=== PATIENT | male | born 1995 | race Caucasian/White ===

== ENCOUNTER 2021-12-28 09:42 | Outpatient (CLI) | payer OTHER, SELFPAY ==
[2021-12-28 10:08] LABS: Appearance Urine Clear (Clear); Bilirubin Urine Negative (Negative); Blood Urine Negative (Negative); Color Urine Yellow (Yellow); Glucose Urine 2+ (Negative); Ketones Urine Negative (Negative); Leukocyte Esterase Urine Negative (Negative); Nitrite Urine Negative (Negative); Protein Urine Negative (Negative); Specific Gravity Urine >= 1.030 (1.000-1.030); Urobilinogen Urine 0.2 (0.2-1.0)
[2021-12-28 10:20] LABS: Hemoglobin A1C* 9.9 % (0-5.6)
[2021-12-28 13:49] LABS: Basophils Absolute Auto 0.03 K/uL (0.00-0.30); Basophils Percent Auto 0.6 % (0.0-3.0); Eosinophils Absolute Auto 0.15 K/uL (0.00-0.50); Eosinophils Percent Auto 2.8 % (0.0-7.0); Hematocrit 45.1 % (37.0-53.0); Hemoglobin* 15.6 gm/dL (13.5-17.5); Immature Granulocytes Abs Auto 0.01 K/uL (0.00-0.30); Lymphocytes Percent Auto 46.3 % (20-44); Mean Corpuscular HGB Conc 35 gm/dL (32-36); Mean Corpuscular Hemoglobin 29 pg (26-34); Mean Corpuscular Volume 84 fL (80-100); Monocytes Percent Auto 6.3 % (0.0-11.0); Neutrophils Absolute Auto 2.36 K/uL (1.7-7.0); Neutrophils Percent Auto 43.8 % (42.0-72.0); Platelet Count* 264 K/uL (140-440); RDW Coefficient of Variation % 12.2 % (11.5-15.5); Red Blood Count 5.36 m/uL (4.30-5.90); White Blood Count* 5.38 K/uL (4.50-11.00)
[2021-12-28 13:54] LABS: Slide Review Reflex No
[2021-12-29 07:59] LABS: Blood Urea Nitrogen* 19 mg/dL (5-24); Carbon Dioxide* 27 mmol/L (20-32); Chloride* 102 mmol/L (96-114); Creatinine* 0.8 mg/dL (0.5-1.5); Estimated Glomerular Filt Rate 124 ml/min; Potassium* 4.9 mmol/L (3.6-5.1); Sodium* 139 mmol/L (135-149)
[2021-12-29 08:00] LABS: Calcium* 9.7 mg/dL (8.4-10.6); Glucose* 185 mg/dL (60-115)
== END 2021-12-28 09:43 | disposition home or self-care (01) ==
PROVIDERS: PCP Internal Medicine; Visit Provider Nurse Practitioner Family
DX: R10.9 Unspecified abdominal pain (principal); E10.9 Type 1 diabetes mellitus without complications; L30.9 Dermatitis, unspecified
CPT/HCPCS: 36415; 80048; 81003; 83036; 85025

== ENCOUNTER 2022-01-02 07:47 | Outpatient (CLI) | payer OTHER, SELFPAY ==
--- NOTE | 2022-01-02 08:00 | CRLHL7_ITS ---
For Patients: As a result of the Century Cures Act, medical imaging exams and procedure reports are released immediately into your electronic medical record. You may view this report before your referring provider. If you have questions, please contact your health care provider. INDICATION: FLANK AND ABD PAIN TECHNIQUE: A CT volumetric acquisition was performed of the abdomen and pelvis without intravenous contrast. Please note that all CT scans at this facility use dose modulation, iterative reconstruction, and/or weight-based dosing when appropriate to reduce radiation dose to as low as reasonably achievable. COMPARISON: None. FINDINGS: The CT images demonstrate normal aeration of the lung bases. There is no evidence of pleural or pericardial fluid. Within the abdomen the liver appears normal in size and density. The spleen is of normal size. There is no evidence of mass effect or inflammation within the pancreas. The gallbladder and bile ducts appear normal. The adrenal glands have normal morphology. High attenuation renal pyramid sign noted bilaterally. No hydronephrosis or perinephric stranding. No evidence of renal calculus. Normal ureters. The small and large bowel loops appear normal and there are no abnormalities noted within the small bowel mesentery or greater omentum. The aorta and IVC appear normal. Mildly prominent mesenteric lymph nodes are present, likely normal for age. The prostate gland and urinary bladder appear normal. There is no evidence of a ventral abdominal wall hernia. Incidental transitional lumbosacral anatomy noted on the right. IMPRESSION: Bilateral hyperdense renal pyramids sign. This is typically an incidental normal finding but could represent sequela of dehydration/high-protein diets, high caffeine intake or medullary sponge kidney. No renal stone or hydronephrosis. Please note that all CT scans at this facility use dose modulation, iterative reconstruction, and/or weight-based dosing when appropriate to reduce radiation dose to as low as reasonably achievable. Dictated by Greg Garcia MD @ 01/02/2022 9:30:45 AM (Electronically Signed)
== END 2022-01-02 07:48 | disposition home or self-care (01) ==
LOC: CT 07:48
PROVIDERS: PCP Internal Medicine; Visit Provider Nurse Practitioner Family
DX: R10.9 Unspecified abdominal pain (principal)
CPT/HCPCS: 74176

== ENCOUNTER 2022-02-06 08:49 | Outpatient (CLI) | payer OTHER, SELFPAY ==
[2022-02-06 10:59] LABS: Albumin* 4.9 g/dL (3.3-5.0); Chloride* 101 mmol/L (96-114); Sodium* 141 mmol/L (135-149)
[2022-02-06 11:00] LABS: Potassium* 3.8 mmol/L (3.6-5.1)
[2022-02-06 11:02] LABS: Carbon Dioxide* 29 mmol/L (20-32); Creatinine* 0.8 mg/dL (0.5-1.5); Estimated Glomerular Filt Rate 124 ml/min
[2022-02-06 11:03] LABS: Blood Urea Nitrogen* 17 mg/dL (5-24); Calcium* 9.5 mg/dL (8.4-10.6); Glucose* 169 mg/dL (60-115); Phosphorus* 4.3 mg/dL (2.5-4.5)
[2022-02-06 11:12] LABS: Creatinine Urine 87.9 mg/dL
[2022-02-06 11:17] LABS: Microalbumin Creatinine Ratio 20 mg/g (0-30); Microalbumin Urine 2 mg/dL
== END 2022-02-06 08:50 | disposition home or self-care (01) ==
PROVIDERS: PCP Internal Medicine; Visit Provider Internal Medicine Nephrology
DX: Z00.00 Encounter for general adult medical examination without abnormal findings (principal); E10.9 Type 1 diabetes mellitus without complications; R10.9 Unspecified abdominal pain; R11.10 Vomiting, unspecified
CPT/HCPCS: 80069; 82043; 82310; 82570; 83970; 84550

== ENCOUNTER 2022-02-20 15:00 | Outpatient (CLI) | payer OTHER, SELFPAY ==
[2022-03-01 14:51] LABS: Hours Collected 24 hr; Total Volume 2400 mL; Urine Supersaturation Interp Normal; pH, Urine 6.19 (5.00-7.50)
== END 2022-02-20 15:01 | disposition home or self-care (01) ==
PROVIDERS: Internal Medicine Nephrology; PCP Internal Medicine; Visit Provider Internal Medicine
DX: R10.9 Unspecified abdominal pain (principal); E10.9 Type 1 diabetes mellitus without complications
CPT/HCPCS: 82340; 82436; 82507; 83735; 83945; 83986; 84105; 84133; 84300; 84392; 84560

== ENCOUNTER 2022-07-11 19:05 | Emergency (ER) | payer OTHER, SELFPAY ==
[2022-07-11] VITALS (9 sets, daily range): BP systolic 111–126; BP diastolic 74–85; PULSE 87–98; RESP 12; TEMP 36.7; O2SAT 95–100; BMI 22.8
--- NOTE | 2022-07-11 19:28 | CRLHL7_ITS ---
For Patients: As a result of the Cures Act, medical imaging exams and procedure reports are released immediately into your electronic medical record. You may view this report before your referring provider. If you have questions, please contact your health care provider. Indication: Fall Technique: Three views left shoulder Comparison: None Findings: Bones: Alignment is normal. No fractures or bone lesions. Joint spaces: Unremarkable. Soft tissues: Unremarkable. Impression: Negative. Dictated by Vivi Marks MD @ 07/11/2022 8:21:01 PM (Electronically Signed)
--- NOTE | 2022-07-11 19:55 | ED_ITS ---
HPI - Extremity Injury (Upper) General Chief Complaint: Extremity Pain/Injury, Upper Stated Complaint: slip/fall shoulder injury Time Seen by Provider: 07/11/22 19:12 History of Present Illness HPI narrative: 26-year-old man presenting to the emergency department with spouse with complai nt of left shoulder area pain. He was shoveling and slipped on the ice landing on left shoulder heard a crack. Only comfortable now with arm against body in flexed at the elbow. No neck or back pain but he does feel some discomfort shooting from shoulder area up towards his ear now. Has some soreness in his left wrist as well but does not think he really injured this. Does not describe hitting his head. There was no loss of consciousness. Related Data Home Medications Medication Instructions Recorded Confirmed insulin lispro 100 unit/mL 1 sliding scale dose subcut 12/28/21 07/24/22 subcutaneous pen (Humalog KwikPen USEASDIRECTD (U-100) Insulin) Previous Rx's Medication Instructions Recorded blood sugar diagnostic (Accu-Chek #100 ea 12/19/21 Guide test strips) blood-glucose meter,continuous #1 ea 01/23/22 (Dexcom G6 Grinder Operator External Tool) blood-glucose sensor (Dexcom G6 #3 ea 01/23/22 Sensor device) blood-glucose transmitter (Dexcom #1 ea 01/23/22 G6 Transmitter device) insulin glargine U-300 conc 300 30 - 36 unit (0.1 - 0.12 mL) 05/29/22 unit/mL (3 mL) subcutaneous pen subcut QHS #3 mL (Toujeo Max U-300 SoloStar) Allergies Allergy/AdvReac Type Severity Reaction Status Date / Time Penicillins Allergy Verified 07/24/22 10:48 Review of Systems Status of ROS: Reports: 6 or more systems reviewed and unremarkable except as noted in History and below PFSH PFSH Surgical History (Updated 07/24/22 @ 10:51 by Yaneth Mays ([facility]), GENERAL OPHTHALMOLOGIST) H/O eye surgery Family History (Updated 07/24/22 @ 10:50 by Yaneth CROCKER), [employer]) Paternal Grandfather Lung cancer Father Anemia Social History , [facility]) 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 No illicit drug use. Smoking Status: Former smoker Do you use any of these nicotine containing products: None Second hand tobacco smoke exposure: No How often do you have a drink containing alcohol: never AUDIT-C Alcohol total score: 0 Non-prescribed substance use: denies use Exam Narrative: Exam Narrative: Pleasant. Here with spouse. Calm but clearly uncomfortable holding left arm abducted to the body. head is atraumatic. lungs with equal expansion/excursion. neck supple. no midline tenderness. no midline back tenderness. quite tender with mild swelling in the soft tissue just posterior to and near lateral 1/3 of clavicle. most tender in this area but not directly in the AC joint nor under the acromion. tender also in soft tissue anterior to middle 1/3 of clavicle. not really so tender to palp along the clavicle. tense and tender left lateral neck musculature. good peripheral pulses and sensation. good emergency man strength. tolerable small assisted rotational movements on the GH joint. resisted int/ext rotation of shoulder strong but painful. no erythema or outer shoulder/deltoid swelling. not able to abduct to any significant degree. no apparent injury to elbow or forearm. Const: Vital Signs, click to edit/add: Vital Signs - 24 hr 07/11/22 19:12 07/11/22 19:30 07/11/22 19:31 Temperature 98.0 F Pulse Rate 92 98 Pulse Rate [Pulse Oximeter] 97 Blood Pressure 124/84 Blood Pressure [Ri ght Upper Arm] 126/78 Pulse Oximetry 96 96 95 Oxygen Delivery Me thod Room Air Documenting provider has reviewed patient's vital signs: yes Course Vital Signs Vital signs: Initial Vital Signs Temperature 98.0 F 07/11/22 19:12 Temperature Source Temporal Artery Scan 07/11/22 19:12 Pulse Rate 97 07/11/22 19:12 Blood Pressure 126/78 07/11/22 19:12 Blood Pressure Mean 94 07/11/22 19:12 Blood Pressure Position Sitting 07/11/22 19:12 Pulse Oximetry 96 07/11/22 19:12 Oxygen Delivery Method 07/11/22 19:12 Vital Signs Temperature 98.0 F 07/11/22 19:12 Pulse Rate 97 07/11/22 19:12 Blood Pressure 126/78 07/11/22 19:12 Pulse Oximetry 96 07/11/22 19:12 Oxygen Delivery Method 07/11/22 19:12 Temperature 98.0 F 07/11/22 21:00 Pulse Rate 97 07/11/22 21:00 Respiratory Rate 12 07/11/22 21:00 Blood Pressure 126/78 07/11/22 21:00 Pulse Oximetry 100 07/11/22 20:31 Oxygen Delivery Method 07/11/22 19:12 MDM - Extremity Injury (Upper) MDM Narrative Medical decision making narrative: xray of shoulder reviewed by me -- AC joint and coracoid to clavicle seems a little wide to me though affected by projection. there is however good alignment at the AC joint. no bony abn. I am a little puzzled by this exam and imaging. pain seems to surround the distal 1/3 of clavicle. I'm not convinced that this is a rotator cuff injury nor gleno-humeral impact injury/contusion. I don't see swelling in areas I might associate with contusion from described mechanism/impact. was placed early in shoulder sling. I did discuss doing weighted views of the clavicle to offer some more clarity; he declined due to anticipated pain I think. ok to follow up given information on AC/shoulder separation. this would seem c/w with mechanism and general area of pain. discussed pain management. will provide norco from [facility] to augment ibuprofen if necessary. Discharge Plan Discharge Clinical Impression: shoulder, Acute shoulder pain Patient Disposition: Home w/ Parent or Adult Condition: Stable Additional Instructions: I would ice your shoulder as discussed a few times daily over the next few days. Wear the arm sling for comfort --see handout on shoulder separation. Follow-up if just not improved in 7-10 days though it might be helpful regardless to follow-up with your primary care provider or sports medicine provider. You could also talk to Orthopedics phone number [phone]. Can take up to 800 mg of ibuprofen per dose or up to 1000 mg of acetaminophen per dose. Alternative to the ibuprofen might be up to 500 mg of naproxen 2 times daily. Either ibuprofen or naproxen can be combined with acetaminophen at same time dosing if necessary. Remember that each tablet of [place] contains 325 mg of acetaminophen. [place] from [facility]. Prescriptions: No Action insulin lispro [Humalog KwikPen Insulin] 100 unit/mL insulin pen 1 sliding scale dose subcut USEASDIRECTD (DME) Accu-Chek Guide test strips Strip See Rx Instructions .Route Qty: 100 1RF Rx Instructions: 1 test TID (DME) Dexcom G6 Sensor Device See Rx Instructions .Route Qty: 3 12RF Rx Instructions: As directed (DME) Dexcom G6 Grinder Operator External Tool Misc See Rx Instructions .Route Qty: 1 3RF Rx Instructions: As directed (DME) Dexcom G6 Transmitter Device See Rx Instructions .Route Qty: 1 3RF Rx Instructions: As directed Toujeo Max U-300 SoloStar 300 unit/mL (3 mL) insulin pen 30 - 36 unit subcut QHS Qty: 3 2RF Follow Up/Referrals: Marcus Nelson MD [Primary Care Provider] - Stand Alone Forms: [employer] Info Instructions
--- NOTE | 2022-07-11 20:37 | ED.NURSE ---
Report received from FATOUMATA Aguilar.
== END 2022-07-11 21:00 | disposition home or self-care (01) ==
PROVIDERS: Emergency Provider Family Medicine; PCP Internal Medicine
DX: S43.005A Unspecified dislocation of left shoulder joint, initial encounter (principal); W00.9XXA Unspecified fall due to ice and snow, initial encounter
CPT/HCPCS: 73030; 99283; 99284

== ENCOUNTER 2022-08-20 03:23 | Emergency (ER) | payer OTHER, SELFPAY ==
[2022-08-20 03:27] VITALS: BP 106/73; PULSE 118; RESP 26; TEMP 37.8; O2SAT 100
--- NOTE | 2022-08-20 03:32 | CRLHL7_ITS ---
For Patients: As a result of the Century Cures Act, medical imaging exams and procedure reports are released immediately into your electronic medical record. You may view this report before your referring provider. If you have questions, please contact your health care provider. INDICATION: Chest pain. TECHNIQUE: Chest 1 views. COMPARISON: None. FINDINGS: Cardiovasculature and mediastinum: Heart size and vasculature are normal in caliber and appearance. Lungs and pleural spaces: Lungs are clear. No sign of infiltrate or mass. No sign of pleural effusion. No pneumothorax. Bones and soft tissues: No significant findings. IMPRESSION: No acute or significant findings. Dictated by Elio Saavedra MD @ 08/20/2022 4:26:59 AM (Electronically Signed)
--- NOTE | 2022-08-20 03:33 | ED.GENADULT ---
HPI - General Adult General Time Seen by Provider: 03:33 Date Seen: 08/20/22 Chief complaint: Nausea/Vomiting Stated complaint: vomiting,diarrhea, can't keep liquids down. Time Seen by Provider: 08/20/22 03:35 Source: patient and family Mode of arrival: ambulatory Limitations: no limitations History of Present Illness HPI narrative: 26-year-old male who comes in today with nausea vomiting. He is type 1 diabetic, says blood sugar at home was 106. Started feeling nausea about 7 hours prior to coming the emergency department, started vomiting 2-1/2 hours ago. Denies abdominal pain. Denies fever, chills, diarrhea, abdominal pain, chest pain, breathing difficulty. Took Zofran and Pepto at home with no improvement. Related Data Home Medications Medication Instructions Recorded Confirmed insulin lispro 100 unit/mL 1 sliding scale dose subcut 12/28/21 07/24/22 subcutaneous pen (Humalog KwikPen USEASDIRECTD (U-100) Insulin) Previous Rx's Medication Instructions Recorded blood sugar diagnostic (Accu-Chek #100 ea 12/19/21 Guide test strips) blood-glucose meter,continuous #1 ea 01/23/22 (Dexcom G6 Dry Charge Process Attendant) blood-glucose sensor (Dexcom G6 #3 ea 01/23/22 Sensor device) blood-glucose transmitter (Dexcom #1 ea 01/23/22 G6 Transmitter device) insulin glargine U-300 conc 300 30 - 36 unit (0.1 - 0.12 mL) 05/29/22 unit/mL (3 mL) subcutaneous pen subcut QHS #3 mL (Toujeo Max U-300 SoloStar) Allergies Allergy/AdvReac Type Severity Reaction Status Date / Time Penicillins Allergy Verified 07/24/22 10:48 Review of Systems Status of ROS: Reports: 10 or more systems reviewed and unremarkable except as noted in History and below PFSH PFSH Surgical History (Updated 07/24/22 @ 10:51 by Yaneth Mays ~ [employer], [employer]ATIONAL [employer]ETING [employer]GER) H/O eye surgery ?Z98.890 - Other specified postprocedural states (ICD-10) Family History (Updated 07/24/22 @ 10:50 by Yaneth Mays ~ [employer], INTERNATIONAL MARKETING MANAGER) Paternal Grandfather Lung cancer Father Anemia Social History (Reviewed 07/24/22 @ 10:50 by Yaneth Mays ~ INTERNATIONAL MARKETING MANAGER, INTERNATIONAL MARKETING MANAGER) 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 No illicit drug use. Smoking Status: Former smoker Do you use any of these nicotine containing products: None Second hand tobacco smoke exposure: No How often do you have a drink containing alcohol: never AUDIT-C Alcohol total score: 0 Non-prescribed substance use: denies use Exam Narrative: Exam Narrative: General: Well-developed and well-nourished, no acute distress Head: Atraumatic and normocephalic Eyes: Pupils are equal reactive, extraocular motions intact, conjunctiva clear ENT: External nose and ears are normal, posterior pharynx without erythema or exudate Neck: No midline cervical tenderness, full spontaneous range of motion the neck, trachea midline, no adenopathy Heart: Regular rate and rhythm no murmurs or thrills Lungs: Clear to auscultation bilaterally without wheezes or crackles Abdomen: Soft, nontender, nondistended with active bowel sounds Musculoskeletal: No tenderness, deformity, or edema Neurologic: Awake, alert, and oriented x3, no gross focal neurologic deficits, cranial nerves intact as tested Psych: Mood and affect are appropriate Skin: No rashes Const: Vital Signs, click to edit/add: Vital Signs - 24 hr 08/20/22 03:27 08/20/22 05:29 Temperature 100.1 F H Pulse Rate [Left P ulse Oximeter] 118 H 102 H Respiratory Rate 26 H 18 Blood Pressure [Ri ght Upper Arm] 106/73 113/58 L Pulse Oximetry 100 97 Oxygen Delivery Me thod Room Air Room Air Course Course Hospital Course: Patient seen examined, prior records are reviewed. Patient with type 1 diabetes comes in with nausea and vomiting for couple hours. On exam here, tachycardia, no abdominal tenderness. Labs, fluids, Zofran are ordered. Reevaluation(s) Reevaluation #1: Labs independently interpreted by me demonstrate normal white blood cell moves, normal basic panel, venous blood gas actually shows mild alkalosis consistent with patient's hyperventilation but no evidence for DKA. Hepatic function panel and lipase are normal. COVID, flu, RSV negative. Chest x-ray independently interpret by me negative. Urinalysis and alcohol level pending. Patient recheck, nausea vomiting or better although still tachycardic. Additional fluids are ordered and will plan to discharge breath Time: 04:33 Reevaluation #2: Patient has not yet provided urine sample. Has tolerated oral intake in the emergency department. Has Zofran at home. Discussed checking sugars and insulin use during illness. Otherwise stable for discharge. Time: 05:58 Vital Signs Vital signs: Initial Vital Signs Temperature 100.1 F H 08/20/22 03:27 Temperature Source Temporal Artery Scan 08/20/22 03:27 Pulse Rate 118 H 08/20/22 03:27 Pulse Rhythm Regular 08/20/22 03:27 Respiratory Rate 26 H 08/20/22 03:27 Blood Pressure 106/73 08/20/22 03:27 Blood Pressure Mean 84 08/20/22 03:27 Pulse Oximetry 100 08/20/22 03:27 Oxygen Delivery Method Room Air 08/20/22 03:27 Vital Signs Temperature 100.1 F H 08/20/22 03:27 Pulse Rate 118 H 08/20/22 03:27 Respiratory Rate 26 H 08/20/22 03:27 Blood Pressure 106/73 08/20/22 03:27 Pulse Oximetry 100 08/20/22 03:27 Oxygen Delivery Method Room Air 08/20/22 03:27 Temperature 100.1 F H 08/20/22 03:27 Pulse Rate 102 H 08/20/22 05:29 Respiratory Rate 18 08/20/22 05:29 Blood Pressure 113/58 L 08/20/22 05:29 Pulse Oximetry 97 08/20/22 05:29 Oxygen Delivery Method Room Air 08/20/22 05:29 Medical Decision Making Medical Records Medical records reviewed: Yes I reviewed the patient's medical records Lab Data Lab results reviewed: Yes I reviewed the patient's lab results Labs: Lab Results 08/20/22 08/20/22 Range/Units 03:30 03:35 WBC 9.32 (4.50-11.00) K/uL RBC 5.55 (4.30-5.90) m/uL Hgb 16.4 (13.5-17.5) gm/dL Hct 45.3 (37.0-53.0) % MCV 82 (80-100) fL MCH 30 (26-34) pg MCHC 36 (32-36) gm/dL RDW Coeff of Jagdish 12.1 (11.5-15.5) % Plt Count 233 (140-440) K/uL Neut % (Auto) 88.1 H (42.0-72.0) % Lymph % (Auto) 6.5 L (20-44) % Hooker % (Auto) 4.7 (0.0-11.0) % Eos % (Auto) 0.4 (0.0-7.0) % Baso % (Auto) 0.1 (0.0-3.0) % Neut # (Auto) 8.20 H (1.7-7.0) K/uL Lymph # (Auto) 0.60 L (0.90-2.90) K/uL Hooker # (Auto) 0.40 (0.00-0.90) K/UL Eos # (Auto) 0.04 (0.00-0.50) K/uL Baso # (Auto) 0.01 (0.00-0.30) K/uL VBG pH 7.529 H (7.32-7.43) VBG pCO2 32 L (40-50) mmHG VBG pO2 30.5 (25-47) mmHG VBG HCO3 26 (21-28) mmol/L Sodium 141 (135-149) mmol/L Potassium 3.9 (3.6-5.1) mmol/L Chloride 106 (96-114) mmol/L Carbon Dioxide 24 (20-32) mmol/L BUN 20 (5-24) mg/dL Creatinine 0.8 (0.5-1.5) mg/dL Estimated GFR 124 ml/min Glucose 115 (60-115) mg/dL Lactate 1.3 (0.5-1.9) mmol/L Calcium 9.7 (8.4-10.6) mg/dL Magnesium 1.5 (1.5-2.6) mg/dL Total Bilirubin 0.9 (0.1-1.5) mg/dL Direct Bilirubin 0.2 (0.0-0.5) mg/dL AST 30 (12-35) U/L ALT 29 (4-50) U/L Alkaline Phosphatase 70 (40-150) U/L Total Protein 7.9 (6.0-8.3) g/dL Albumin 4.9 (3.3-5.0) g/dL Lipase 27 (23-300) U/L Ethyl Alcohol < 0.01 L (0.01-0.03) % SARS-CoV-2 (PCR) Negative SARS-CoV-2 (Negative) Influenza Type A (PCR) Negative PCR FLU A (Negative) Influenza Type B (PCR) Negative PCR FLU B (Negative) RSV (PCR) Negative PCR RSV (Negative) Discharge Plan Discharge Clinical Impression: Type 1 diabetes mellitus, Vomiting Patient Disposition: Home w/ Parent or Adult Condition: Stable Instructions: Acute Nausea and Vomiting (DC) Activity Level: No Restrictions Discharge Diet: Diabetic Prescriptions: No Action insulin lispro [Humalog KwikPen Insulin] 100 unit/mL insulin pen 1 sliding scale dose subcut USEASDIRECTD (DME) Accu-Chek Guide test strips Strip See Rx Instructions .Route Qty: 100 1RF Rx Instructions: 1 test TID (DME) Dexcom G6 Sensor Device See Rx Instructions .Route Qty: 3 12RF Rx Instructions: As directed (DME) Dexcom G6 Dry Charge Process Attendant Misc See Rx Instructions .Route Qty: 1 3RF Rx Instructions: As directed (DME) Dexcom G6 Transmitter Device See Rx Instructions .Route Qty: 1 3RF Rx Instructions: As directed Toujeo Max U-300 SoloStar 300 unit/mL (3 mL) insulin pen 30 - 36 unit subcut QHS Qty: 3 2RF Follow Up/Referrals: Marcus Nelson MD [Primary Care Provider] - Stand Alone Forms: [facility] Info Instructions
[2022-08-20] MEDS: 0.9 % SODIUM CHLORIDE 1000 ml 1,000 ML IV (03:40)
[2022-08-20] MEDS: ONDANSETRON 2 MG/ML inj 4 MG IVP (03:40)
[2022-08-20 03:42] LABS: HCO3 VBG 26 mmol/L (21-28); PCO2 VBG 32 mmHG (40-50); PO2 VBG 30.5 mmHG (25-47); pH VBG 7.529 (7.32-7.43)
[2022-08-20 03:43] LABS: Basophils Absolute Auto 0.01 K/uL (0.00-0.30); Basophils Percent Auto 0.1 % (0.0-3.0); Eosinophils Absolute Auto 0.04 K/uL (0.00-0.50); Eosinophils Percent Auto 0.4 % (0.0-7.0); Hematocrit 45.3 % (37.0-53.0); Hemoglobin* 16.4 gm/dL (13.5-17.5); Immature Granulocytes Abs Auto 0.02 K/uL (0.00-0.30); Immature Granulocytes Pct Auto 0.2 %; Lymphocytes Percent Auto 6.5 % (20-44); Mean Corpuscular HGB Conc 36 gm/dL (32-36); Mean Corpuscular Hemoglobin 30 pg (26-34); Mean Corpuscular Volume 82 fL (80-100); Monocytes Percent Auto 4.7 % (0.0-11.0); Neutrophils Percent Auto 88.1 % (42.0-72.0); Platelet Count* 233 K/uL (140-440); RDW Coefficient of Variation % 12.1 % (11.5-15.5); Red Blood Count 5.55 m/uL (4.30-5.90); White Blood Count* 9.32 K/uL (4.50-11.00)
[2022-08-20 03:45] LABS: Lactate* 1.3 mmol/L (0.5-1.9); Slide Review Reflex No
[2022-08-20 03:59] LABS: Chloride* 106 mmol/L (96-114); Potassium* 3.9 mmol/L (3.6-5.1); Sodium* 141 mmol/L (135-149)
[2022-08-20 04:00] LABS: Albumin* 4.9 g/dL (3.3-5.0)
[2022-08-20 04:02] LABS: Blood Urea Nitrogen* 20 mg/dL (5-24); Carbon Dioxide* 24 mmol/L (20-32); Creatinine* 0.8 mg/dL (0.5-1.5); Estimated Glomerular Filt Rate 124 ml/min; Glucose* 115 mg/dL (60-115)
[2022-08-20 04:03] LABS: Alkaline Phosphatase* 70 U/L (40-150); Aspartate Amino Transferase* 30 U/L (12-35); Bilirubin Direct* 0.2 mg/dL (0.0-0.5); Bilirubin Total* 0.9 mg/dL (0.1-1.5); Calcium* 9.7 mg/dL (8.4-10.6); Total Protein* 7.9 g/dL (6.0-8.3)
[2022-08-20 04:04] LABS: Alanine Aminotransferase* 29 U/L (4-50); Lipase* 27 U/L (23-300)
[2022-08-20 04:20] LABS: PCR FLU A Negative PCR FLU A (Negative); PCR FLU B Negative PCR FLU B (Negative); PCR RSV Negative PCR RSV (Negative)
[2022-08-20 04:21] LABS: SARS PCR* Negative SARS-CoV-2 (Negative)
[2022-08-20 04:32] LABS: Ethanol* < 0.01 % (0.01-0.03); Magnesium* 1.5 mg/dL (1.5-2.6)
[2022-08-20] MEDS: 0.9 % SODIUM CHLORIDE 500 ML 500 ML IV (04:38)
[2022-08-20 05:29] VITALS: BP 113/58; PULSE 102; RESP 18; O2SAT 97
[2022-08-20 06:22] LABS: Appearance Urine Clear (Clear); Bilirubin Urine 1+ (Negative); Blood Urine Negative (Negative); Color Urine Yellow (Yellow); Glucose Urine Trace (Negative); Ketones Urine 4+ (Negative); Leukocyte Esterase Urine Negative (Negative); Nitrite Urine Negative (Negative); Protein Urine 1+ (Negative)
[2022-08-20 06:36] LABS: Bacteria Urine Few; RBC Urine 0-2 (0-2); Squamous Epithelial Cell Urine Few (None-Few)
== END 2022-08-20 06:48 | disposition home or self-care (01) ==
PROVIDERS: Emergency Provider Family Medicine; PCP Internal Medicine
DX: E10.9 Type 1 diabetes mellitus without complications (principal); R11.10 Vomiting, unspecified
CPT/HCPCS: 36415; 71045; 80048; 80076; 81001; 82077; 82803; 83605; 83690; 83735; 85025; 87086; 87502; 87634; 87635; 96374; 99284; J2405; J7030; J7120

== ENCOUNTER 2022-11-15 14:26 | Outpatient (CLI) | payer OTHER, SELFPAY | END 2022-11-15 14:27 | disposition home or self-care (01) | PROVIDERS: PCP Nurse Practitioner Family; Visit Provider Nurse Practitioner Family | DX: E10.9 Type 1 diabetes mellitus without complications (principal) | CPT/HCPCS: 80061; 82043; 82570; 84443 ==

== ENCOUNTER 2024-03-27 09:15 | Outpatient (CLI) | payer BC, SELFPAY | END 2024-03-27 09:16 | disposition home or self-care (01) | PROVIDERS: PCP Nurse Practitioner Family; Visit Provider Nurse Practitioner Family | DX: E10.9 Type 1 diabetes mellitus without complications (principal) | CPT/HCPCS: 80053; 80061; 82043; 82570; 82607; 84443 ==

== ENCOUNTER 2024-06-19 13:55 | Outpatient (CLI) | payer BC, SELFPAY | END 2024-06-19 13:56 | disposition home or self-care (01) | PROVIDERS: PCP Nurse Practitioner Family; Visit Provider Nurse Practitioner Family | DX: Z11.1 Encounter for screening for respiratory tuberculosis (principal) | CPT/HCPCS: 86480 ==

== ENCOUNTER 2025-04-30 09:33 | Outpatient (CLI) | payer BC, SELFPAY | END 2025-04-30 09:34 | disposition home or self-care (01) | PROVIDERS: PCP Nurse Practitioner Family; Visit Provider Nurse Practitioner Family | DX: E10.9 Type 1 diabetes mellitus without complications (principal) | CPT/HCPCS: 80053; 80061; 82043; 82570; 82607; 84443 ==